=== PATIENT | female | born 1990 | race Caucasian/White ===

== ENCOUNTER 2019-01-28 08:58 | Outpatient (CLI) | payer OTHER ==
--- NOTE | 2019-01-28 14:49 | Mammography Report ---
Reason: BREAT LUMP Procedure Date: 01/28/2019 Accession Number: [id number] / [id number] Procedure: ROXY - Diagnostic Dig Bilat CPT Code: Final Report FULL RESULT: EXAM: Diagnostic Dig Bilat DATE: 01/28/2019 10:36 AM CLINICAL HISTORY: Diagnostic examination. TECHNIQUE: (B) - Bilateral CC and MLO views were obtained. Right laterally exaggerated CC view was obtained. Focused breast ultrasound is performed on both sides. COMPARISON: None PARENCHYMAL PATTERN: (A) - The breast(s) demonstrate(s) scattered fibroglandular densities. FINDINGS: Focused breast ultrasound of the regions indicated as painful is performed on the right and left breast respectively. Sonographic findings demonstrate normal-appearing breast parenchyma and parenchymal background with no mass or fluid collection detected. There are no suspicious masses, calcifications, or areas of distortion mammographically. IMPRESSION: Negative examination. BI-RADS category 1. RECOMMENDATION: (ANNUAL) - Recommend routine annual screening mammography. To start at the age of 40. BI-RADS CATEGORY: (1) - Negative. STANDARD QUALIFYING STATEMENTS: 1. This examination was not reviewed with the aid of Computer-Aided Detection (CAD). 2. A negative or benign imaging report should not preclude biopsy if clinically suspicious findings are present. 3. Dense breasts may obscure an underlying neoplasm. 4. This examination was reviewed without the aid of 3D breast imaging (tomosynthesis).
== END 2019-01-28 08:59 | disposition home or self-care (01) ==
LOC: DI 08:58
PROVIDERS: ATTEND Nurse Practitioner Acute Care
DX: N63.0 Unspecified lump in unspecified breast (principal); N64.4 Mastodynia
CPT/HCPCS: 76642; 77066

== ENCOUNTER 2020-02-23 21:33 | Emergency (ER) | payer OTHER ==
[2020-02-23] MEDS ORDERED: LIDOCAINE 1% 2 ML VIAL MC ONE (22:05)
[2020-02-23] MEDS ORDERED: cefTRIAXone 250 MG VIAL IM STA (22:05)
[2020-02-23] MEDS ORDERED: AZITHROMYCIN 250 MG TABLET PO STA (22:05)
--- NOTE | 2020-02-23 22:08 | ED Physician Documentation ---
History of Present Illness - Stated complaint Stated Complaint: FEMALE - Chief complaint Chief Complaint: General - History obtained from History obtained from: Patient - Additonal information Additional information: 29-year-old female presents to the emergency department for concern that she has been exposed to chlamydia. She entered a relationship with a new partner about 2 weeks ago. Patients new BF was notified today that a previous partner he slept with within the last 3 weeks had tested positive for chlamydia. Patient reports to me that she has not been using condoms with sexual activity. She was seen by her ink technician about 6 weeks ago and had negative STD testing. Over the last 2 to 3 days she has had some minor vaginal spotting as well as discharge. No dyspareunia, fevers lower pelvic pain. Review of Systems Constitutional: reports: Reviewed and negative Ears: reports: Reviewed and negative Nose: reports: Reviewed and negative Throat: reports: Reviewed and negative Cardiac: reports: Reviewed and negative Respiratory: reports: Reviewed and negative GI: reports: Reviewed and negative : reports: Discharge Skin: reports: Reviewed and negative PD PAST MEDICAL HISTORY - Past Surgical History Past Surgical History: No - Present Medications Home Medications: Ambulatory Orders Medication Instructions Recorded Confirmed Cholecalciferol (Vitamin D3) 50,000 unit PO 02/23/20 [Vitamin D] Escitalopram Oxalate [Lexapro] 5 mg PO 02/23/20 - Allergies Allergies/Adverse Reactions: Allergies Allergy/AdvReac Type Severity Reaction Status Date / Time No Known Drug Allergies Allergy Verified 02/23/20 21:46 - Social History Does the pt smoke?: Yes Smoking Status: Current every day smoker Does the pt drink ETOH?: Yes Does the pt have substance abuse?: No - Immunizations Immunizations are current?: Yes - POLST Patient has POLST: No PD ED PE NORMAL - General General: Alert and oriented X 3, No acute distress - HEENT HEENT: PERRL - Cardiac Cardiac: RRR, No murmur - Respiratory Respiratory: Clear bilaterally - Abdomen Abdomen: Normal bowel sounds, Soft, Non tender, Non distended - Female Female : Deferred Results - Vitals Vitals: Vital Signs - 24 hr 02/23/20 21:45 Temperature 37.4 C Heart Rate 70 Respiratory 18 Rate Blood Pressure 133/79 H O2 Saturation 98 Oxygen O2 Source Room air - Labs Labs: Laboratory Tests 02/23/20 21:52 Urine Color YELLOW Urine Clarity CLEAR Urine pH 5.5 Ur Specific Mccormick 1.025 Urine Protein NEGATIVE Urine Glucose (UA) NEGATIVE Urine Ketones NEGATIVE Urine Occult Blood NEGATIVE Urine Nitrite NEGATIVE Urine Bilirubin NEGATIVE Urine Urobilinogen 0.2 (NORMAL) Ur Leukocyte Esterase NEGATIVE Ur Microscopic Review NOT INDICATED Urine Culture Comments NOT INDICATED Urine HCG, Qual NEGATIVE PD MEDICAL DECISION MAKING - ED course Complexity details: reviewed results, considered differential, d/w patient ED course: 29-year-old female presents the emergency department for evaluation of what she believes is a chlamydia infection. Her new partner was just told that he had had sex recently with somebody who tested positive for chlamydia. We do have GC testing via the urine pending however we will empirically treat her today in the emergency department with 250 mg of ceftriaxone as well as 1 g of azithromycin. This is CDC recommendations for empiric treatment of suspected GC. Her b oyfriend whom I am not seeing is reportedly having similar treatment. Emergent return precautions discussed Departure - Departure Disposition: 01 Home, Self Care Clinical Impression: Exposure to chlamydia Condition: Stable Record reviewed to determine appropriate education?: Yes Instructions: STD Poss, ED Chlamydia Female Comments: Manju we have treated you today as though you have Media and gonorrhea infection. We cannot confirm this today though we should have the urine results in the next 48 hours. We will call you if the results are positive. However you were given an injection of an antibiotic as well as an oral antibiotic to take. This should adequately treat any chlamydia and gonorrhea infection that you have. If at any point you have pelvic pain, fevers or any further concerns of sexually transmitted infection please return immediately to the ER. Please always use condoms when having sexual intercourse, especially with new partners until monogamy is established or you can confirm that their STD testing is negative.
[2020-02-23 22:13] LABS: BILIRUBIN,URINE NEGATIVE (NEGATIVE); GLUCOSE, URINE (UA) NEGATIVE (NEGATIVE); KETONES,URINE (UA) NEGATIVE (NEGATIVE); LEUKOCYTE ESTERASE, URINE NEGATIVE (NEGATIVE); NITRITE,URINE NEGATIVE (NEGATIVE); OCCULT BLOOD,URINE NEGATIVE (NEGATIVE); PH,URINE 5.5 PH (5.0-7.5); PROTEIN,URINE NEGATIVE (NEGATIVE); UROBILINOGEN,URINE 0.2 (NORMAL) E.U./dL (NORMAL)
[2020-02-23 22:18] LABS: CLARITY,URINE CLEAR (CLEAR); HCG UR QUAL NEGATIVE
[2020-02-23 22:26] VITALS: BP 128/73
[2020-02-24 04:49] LABS: TRICHOMONAS VAGINALIS DNA NEGATIVE (NEGATIVE)
== END 2020-02-23 22:24 | disposition home or self-care (01) ==
LOC: ED 21:33
DX: N89.8 Other specified noninflammatory disorders of vagina (principal); Z20.2 Contact with and (suspected) exposure to infections with a predominantly sexual mode of transmission; F17.200 Nicotine dependence, unspecified, uncomplicated
CPT/HCPCS: 81003; 81025; 87491; 87591; 87661; 96372; 99283; 99284; A9270; 81001; 87086